=== PATIENT | male | born 1995 | race African-American/Black ===

== ENCOUNTER 2017-03-19 18:40 | Emergency (ER) | payer OTHER ==
[2017-03-19 18:50] VITALS: BP 128/65; PULSE 81; TEMP 98.6; BMI 29.7
--- NOTE | 2017-03-19 19:16 | PDOC ---
History of Present Illness - General History Source: Patient Exam Limitations: No Limitations - History of Present Illness Initial Comments: 03/19/17 20:27 22 year old male, with no significant past medical history, who presents to the emergency room complaining of right lower leg pain s/p getting tackled in a flag football game yesterday afternoon. The patient explains that another player fell directly onto the lateral aspect of his right lower leg. The pain is localized to the lateral aspect of the parker and is exacerbated with ambulation. He notes that he kept his leg elevated last night, wrapped his lower leg with sports tape, and took ibuprofen today for the pain with some relief. The patient notes that he has a history of ankle sprains from playing basketball for many years. Denies any other injuries. Denies numbness and tingling of the left lower extremity. Allergies: NKA <Veda Canales - Last Filed: 03/19/17 20:33> <Joy Banuelos - Last Filed: 03/20/17 00:23> - General Chief Complaint: Injury Stated Complaint: RT FOOT, RT ANKLE PAIN Time Seen by Provider: 03/19/17 19:11 Past History <Veda Canales - Last Filed: 03/19/17 20:33> - Past Medical History COPD: No Other medical history: DENIES - Suicide/Smoking/Psychosocial Hx Smoking History: Never smoked Have you smoked in the past 12 months: No Hx Alcohol Use: No Drug/Substance Use Hx: No <Joy Banuelos - Last Filed: 03/20/17 00:23> - Past Medical History Allergies/Adverse Reactions: Allergies Allergy/AdvReac Type Severity Reaction Status Date / Time No Known Allergies Allergy Verified 03/19/17 18:44 Home Medications: Ambulatory Orders NK [No Known Home Medication] 03/19/17 Review of Systems - Review of Systems Able to Perform ROS?: Yes Comments:: 03/19/17 20:28 GENERAL/CONSTITUTIONAL: No fever or chills. No weakness. HEAD, EYES, EARS, NOSE AND THROAT: No change in vision. No ear pain or discharge. No sore throat. CARDIOVASCULAR: No chest pain or shortness of breath. RESPIRATORY: No cough, wheezing, or hemoptysis. GASTROINTESTINAL: No nausea, vomiting, diarrhea or constipation. GENITOURINARY: No dysuria, frequency, or change in urination. MUSCULOSKELETAL: +Right lower leg pain. No neck or back pain. SKIN: No rash NEUROLOGIC: No headache, vertigo, loss of consciousness, or change in strength/ sensation. <Veda Canales - Last Filed: 03/19/17 20:33> *Physical Exam - Vital Signs Last Vital Signs Temp Pulse Resp BP Pulse Ox 98.6 F 81 16 128/65 100 03/19/17 18:40 03/19/17 18:40 03/19/17 18:40 03/19/17 18:40 03/19/17 18:40 - Physical Exam Comments: 03/19/17 20:32 GENERAL: Awake, alert, and fully oriented, in no acute distress HEAD: No signs of trauma EYES: PERRLA, EOMI, sclera anicteric, conjunctiva clear NECK: Normal ROM, supple, no lymphadenopathy, JVD, or masses LUNGS: Breath sounds equal, clear to auscultation bilaterally. No wheezes, and no crackles HEART: Regular rate and rhythm, normal S1 and S2, no murmurs, rubs or gallops RIGHT LOWER EXTREMITY: + Mild generalized nonpitting edema of the lower leg and ankle and foot. No deformity, no ecchymosis. Mild pain of the distal lateral aspect of the lower leg just proximal to the lateral malleolus. Reproduction of mild pain with external rotation of the lower leg and plantar flexion of the foot. NEUROLOGICAL: Cranial nerves II through XII grossly intact. Normal speech, normal gait SKIN: Warm, Dry, normal turgor, no rashes or lesions noted. <Veda Canales - Last Filed: 03/19/17 20:33> - Vital Signs Last Vital Signs Temp Pulse Resp BP Pulse Ox 98.6 F 81 16 128/65 100 03/19/17 18:40 03/19/17 18:40 03/19/17 18:40 03/19/17 18:40 03/19/17 18:40 <Joy Banuelos - Last Filed: 03/20/17 00:23> Progress Note - Progress Note Progress Note: Documentation has been prepared under my direction and personally reviewed by me in its entirety. I attest that this documented accurately reflects all work, treatment, procedures and medical decision making performed by me. <Joy Banuelos - Last Filed: 03/20/17 00:23> Medical Decision Making - Medical Decision Making As noted above, this 22-year-old man presents with a history of the right lower leg sustained during football game yesterday. Patient is able to ambulate with some pain in the distal lower leg with weightbearing. Exam as noted Right tibial/fibular x-ray is negative for fracture/dislocation. Clinical presentation most consistent with right peroneal tendinitis/right Achilles tendinitis. Eduardo wrap applied. Since he has some pain on ambulation, patient was given crutches for ambulation and crutch walking instruction given. The patient is a student at [employer]: He will be on campus for the next week and then going home. He is been advised to follow up with [facility] if he has persistent pain during the next week. After that, he will be at home ([place], [place]) and he can follow-up with his PMD there if he has any residual symptoms <Joy Banuelos - Last Filed: 03/20/17 00:23> *DC/Admit/Observation/Transfer - Attestations Scribe Attestion: 03/19/17 20:28 Documentation prepared by SAURABH Crespo, acting as electromedical equipment technician for Joy Banuelos MD. <Veda Canales - Last Filed: 03/19/17 20:33> <Joy Banuelos - Last Filed: 03/20/17 00:23> Diagnosis at time of Disposition: Lower extremity tendon strain Qualifiers: Encounter type: initial encounter Laterality: right Qualified Code(s): S86.911A - Strain of unspecified muscle(s) and tendon(s) at lower leg level, right leg, initial encounter - Discharge Dispostion Disposition: HOME Condition at time of disposition: Stable - Referrals Referrals: Levi Martinez MD [Staff Physician] - - Patient Instructions Printed Discharge Instructions: DI for Tendinitis Additional Instructions: Continue ice/elevation of right lower leg for the next 24 hours Eduardo wrap during the day/off midnight Crutches as needed for ambulation for the next 2 days Motrin/Aleve/Tylenol as needed for pain No strenuous lower body exercises in the next week Follow-up with orthopedist( group) within week if pain persists
== END 2017-03-19 21:16 | disposition home or self-care (01) ==
LOC: FER 18:40
DX: S86.911A Strain of unspecified muscle(s) and tendon(s) at lower leg level, right leg, initial encounter (principal); X58.XXXA Exposure to other specified factors, initial encounter; Y93.61 Activity, american tackle football; Y92.321 Football field as the place of occurrence of the external cause
CPT/HCPCS: 73590-TC-RT; 99282-25